=== PATIENT | female | born 1955 | race Caucasian/White ===

== ENCOUNTER 2020-08-23 06:00 | Outpatient (RCR) | payer MEDICARE, OTHER, SELFPAY | END 2020-09-21 23:59 | disposition home or self-care (01) | LOC: GPT 06:00 | PROVIDERS: Referring Provider Physician Assistant; Visit Provider Physician Assistant | DX: M54.5 Low back pain (principal); M54.10 Radiculopathy, site unspecified | CPT/HCPCS: 97032; 97110; 97161; 97530 ==

== ENCOUNTER 2020-09-22 06:00 | Outpatient (RCR) | payer MEDICARE, OTHER, SELFPAY | END 2020-10-22 23:59 | disposition home or self-care (01) | LOC: GPT 06:00 | PROVIDERS: Referring Provider Physician Assistant; Visit Provider Physician Assistant | DX: M16.12 Unilateral primary osteoarthritis, left hip (principal) | CPT/HCPCS: 97110; 97140; 97164; 97530 ==

== ENCOUNTER 2020-10-23 06:00 | Outpatient (RCR) | payer MEDICARE, OTHER, SELFPAY | END 2020-11-21 23:59 | disposition home or self-care (01) | LOC: GPT 06:00 | PROVIDERS: Referring Provider Physician Assistant; Visit Provider Physician Assistant | DX: M16.12 Unilateral primary osteoarthritis, left hip (principal) | CPT/HCPCS: 97032; 97110; 97112; 97530 ==

== ENCOUNTER 2020-11-11 12:57 | Outpatient (CLI) | payer MEDICARE, OTHER, SELFPAY ==
[2020-11-11 13:10] VITALS: BP 128/73; PULSE 70; RESP 18; TEMP 37; O2SAT 98
[2020-11-11 14:45] VITALS: BP 114/72; PULSE 81; RESP 18; O2SAT 92
[2020-11-11 15:45] VITALS: BP 104/62; PULSE 91; RESP 18; TEMP 36.8; O2SAT 92
== END 2020-11-11 12:58 | disposition home or self-care (01) ==
LOC: OPS 13:03
PROVIDERS: PCP Nurse Practitioner; Visit Provider Nurse Practitioner
DX: U07.1 COVID-19 (principal)
CPT/HCPCS: 96365

== ENCOUNTER 2021-08-15 12:45 | Outpatient (CLI) | payer MEDICARE, OTHER, SELFPAY ==
--- NOTE | 2021-08-15 12:56 | MR_ITS ---
WS: [id number] MRI LUMBAR SPINE NONCONTRAST HISTORY: OTHER SPONDYLOSIS, LUMBAR REGION/CHRONIC PAIN SYNDROME, LEFT hip and leg pain. COMPARISON: None available. TECHNIQUE: Sagittal and axial multisequence imaging is submitted. Reversal the normal cervical lordosis. Thoracolumbar curvature and scoliosis. Moderate RIGHT lumbar d extroscoliosis. There is also mild increase in the lumbar lordosis. L1 and L2 retrolisthesis by 3 mm. Mild disc space narrowing and desiccation throughout the lumbar spine. There is marrow edema in the L 2 and L3 vertebral bodies adjacent to the disc space. Conus terminates normally at L1. L1-L2: Moderate annular disc bulging is asymmetric to the LEFT. Mild ligamentum flavum hypertrophy an d facet arthritis. Encroachment into the LEFT lateral thecal sac due to the scoliosis. Mild bilateral foraminal stenosis. L2-L3: Moderate diffuse annular disc bulging. Mild facet joint arthritis. Mild encroachment into the central canal. Mild central and bilateral subarticular recess and foraminal stenosis. L3-L4: Mild diffuse annular disc bulging with moderate ligamentum flavum hypertrophy and facet arthri tis. Mild RIGHT foraminal stenosis. L4-L5: Moderate diffuse annular disc bulging. Moderate ligamentum flavum and facet arthritis. Fluid i n the LEFT facet joint. Mild central stenosis with moderate bilateral subarticular recess stenosis. M ild encroachment upon the traversing L5 nerve roots. Mild bilateral foraminal narrowing. There is nicola y minimal disc contact on the exiting RIGHT L4 nerve root. L5-S1: Mild diffuse disc bulge with a shallow LEFT foraminal disc protrusion. Disc contacts the S1 ne rve roots bilaterally. Very mild central and bilateral subarticular recess and foraminal stenosis. 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 Cyst measures 2.0 x 2.5 cm. RIGHT adnexal cyst measures 3.2 x 3.2 cm. MR/MR lumbar spine wo con* [id number] IMPRESSION: 1. Moderate increase in the lumbar lordosis and dextroscoliosis of the lumbar spine. 2. Marrow edema with disc desiccation at L2-3. 3. Mild central, bilateral subarticular recess and foraminal stenosis at L2-3 and L5-S1. 4. Minimal disc contact on the traversing S1 nerve roots bilaterally. 5. Mild central with moderate bilateral subarticular recess stenosis at L4-5. There is disc contacting the traversing L5 nerve roots and also the exiting RIG HT L4 nerve root. 6. Mild bilateral foraminal stenosis at L1-2 and on the RIGHT at L3-4.
== END 2021-08-15 12:46 | disposition home or self-care (01) ==
LOC: RAD 12:47
PROVIDERS: PCP Nurse Practitioner; Visit Provider Nurse Practitioner
DX: M47.896 Other spondylosis, lumbar region (principal); G89.4 Chronic pain syndrome; M48.061 Spinal stenosis, lumbar region without neurogenic claudication; M48.07 Spinal stenosis, lumbosacral region
CPT/HCPCS: 72148

== ENCOUNTER → 2021-09-03 09:44 | Outpatient (BNVA) | payer MEDICARE, OTHER, SELFPAY | PROVIDERS: PCP Nurse Practitioner; Referring Provider Nurse Practitioner; Visit Provider Internal Medicine | DX: M48.00 Spinal stenosis, site unspecified (principal); R76.8 Other specified abnormal immunological findings in serum; Z11.59 Encounter for screening for other viral diseases; Z11.1 Encounter for screening for respiratory tuberculosis; M45.0 Ankylosing spondylitis of multiple sites in spine; D64.9 Anemia, unspecified | CPT/HCPCS: 36415; 80053; 82728; 85025; 85651; 86140; 86160; 86162; 86200; 86235; 86255; 86376; 86431; 86480; 86704; 86803; 86812; 87340; 99204 ==

== ENCOUNTER 2021-09-22 09:27 | Outpatient (CLI) | payer MEDICARE, OTHER, SELFPAY ==
--- NOTE | 2021-09-22 09:41 | XRR_ITS ---
PROCEDURE INFORMATION: Exam: XR Thoracic Spine Exam date and time: 09/22/2021 9:57 AM Age: 66 years old Clinical indication: Pain in thoracic spine; Patient HX: 66 yo F with pmh of spinal stenosis, positive beba presents for evaluaiton. Pain ongoing for > 5 years, worse in the last two years. Onset age [age] years old. Has abnormal spine lumbar mri. She is on hcq, she has a non specfic diagnosis. Joint swelling in hands and knee occasionally. Am stiffness 30-60 minutes. Denies gelling; Additional info: R76.8 - other specified abnormal immunological findings i. . . TECHNIQUE: Imaging protocol: Radiologic exam of the thoracic spine. Views: 3 views. COMPARISON: MR lumbar spine wo con* [id number] 08/15/2021 1:17 PM FINDINGS: Bones/joints: No acute fracture. Normal alignment. [id number] multilevel DJD of the thoracic spine. No irregular osseous erosions or ankylosis of the vertebral bodies. Soft tissues: Unremarkable. XR/XR thoracic spine 3V* [id number] IMPRESSION: No acute findings. Mild to moderate multilevel DJD of the thoracic spine.
--- NOTE | 2021-09-22 09:41 | XRR_ITS ---
PROCEDURE INFORMATION: Exam: XR Bilateral Sacroiliac Joints Exam date and time: 09/22/2021 9:57 AM Age: 66 years old Clinical indication: Other: Bilat jt pain; Patient HX: 66 yo F with pmh of spinal stenosis, positive beba presents for evaluaiton. Pain ongoing for > 5 years, worse in the last two years. Onset age [age] years old. Has abnormal spine lumbar mri. She is on hcq, she has a non specfic diagnosis. Joint swelling in hands and knee occasionally. Am stiffness 30-60 minutes. Denies gelling; Additional info: L40.9 - psoriasis, unspecified TECHNIQUE: Imaging protocol: XR Bilateral XR of the sacroiliac joints. Views: 3 or more views. COMPARISON: MR lumbar spine wo con* [id number] 08/15/2021 1:17 PM FINDINGS: Bones/joints: Sacroiliac joints are intact. No irregular osseous erosions or sclerosis. Soft tissues: Normal. XR/XR sacroiliac jts 3V [id number] IMPRESSION: No radiographic sequela of sacroiliitis.
--- NOTE | 2021-09-22 09:41 | XRR_ITS ---
PROCEDURE INFORMATION: Exam: XR Right Hand Exam date and time: 09/22/2021 9:57 AM Age: 66 years old Clinical indication: Right; Patient HX: 66 yo F with pmh of spinal stenosis, positive beba presents for evaluaiton. Pain ongoing for > 5 years, worse in the last two years. Onset age [age] years old. Has abnormal spine lumbar mri. She is on hcq, she has a non specfic diagnosis. Joint swelling in hands and knee occasionally. Am stiffness 30-60 minutes. Denies gelling; Additional info: R76.8 - other specified abnormal immunological findings i. . . TECHNIQUE: Imaging protocol: Radiologic exam of the Right hand. Views: 1 or 2 views. COMPARISON: No relevant prior studies available. FINDINGS: Bones/joints: Osseous structures are intact. Negative for fracture. No irregular osseous erosions. Joint spaces are preserved. Soft tissues: Normal. XR/XR hand RT 2V [id number] IMPRESSION: No radiographic sequela of inflammatory arthropathy involving the right hand.
--- NOTE | 2021-09-22 09:41 | XRR_ITS ---
PROCEDURE INFORMATION: Exam: XR Cervical Spine Exam date and time: 09/22/2021 9:57 AM Age: 66 years old Clinical indication: Neck pain; Additional info: R76.8 - other specified abnormal immunological findings i. . . TECHNIQUE: Imaging protocol: Radiologic exam of the cervical spine. Views: 2 or 3 views. COMPARISON: No relevant prior studies available. FINDINGS: Bones/joints: There is multilevel intervertebral disc space narrowing and sclerosis with bone spurs consistent with osteoarthritis. No acute fracture. There is reversal of cervical lordosis. There is spondylolisthesis C7-T1. There is retrolisthesis C4-C5 and C5-C6 in the neutral position. With flexion and extension similar findings seen.. There is no evidence of significant instability with flexion and extension Soft tissues: Unremarkable. XR/XR cervical spine fl/ex [id number] IMPRESSION: 1. Severe osteoarthritis. 2. Spondylolisthesis C7-T1. 3. Retrolisthesis C4-C5 and C5-C6 4. Negative for instability with flexion and extension
--- NOTE | 2021-09-22 09:41 | XRR_ITS ---
PROCEDURE INFORMATION: Exam: XR Left Hand Exam date and time: 09/22/2021 9:57 AM Age: 66 years old Clinical indication: Left; Patient HX: 66 yo F with pmh of spinal stenosis, positive beba presents for evaluaiton. Pain ongoing for > 5 years, worse in the last two years. Onset age [age] years old. Has abnormal spine lumbar mri. She is on hcq, she has a non specfic diagnosis. Joint swelling in hands and knee occasionally. Am stiffness 30-60 minutes. Denies gelling; Additional info: R76.8 - other specified abnormal immunological findings i. . . TECHNIQUE: Imaging protocol: Radiologic exam of the Left hand. Views: 3 or more views. COMPARISON: No relevant prior studies available. FINDINGS: Bones/joints: Osseous structures are intact. Negative for fracture. No irregular osseous erosions. Joint spaces are preserved. Soft tissues: Normal. XR/XR hand LT 2V [id number] IMPRESSION: No radiographic sequela of inflammatory arthropathy involving the left hand.
== END 2021-09-22 09:28 | disposition home or self-care (01) ==
LOC: RAD 09:31
PROVIDERS: PCP Nurse Practitioner; Visit Provider Internal Medicine
DX: R76.8 Other specified abnormal immunological findings in serum (principal); M48.00 Spinal stenosis, site unspecified; L40.9 Psoriasis, unspecified; M47.814 Spondylosis without myelopathy or radiculopathy, thoracic region; M47.812 Spondylosis without myelopathy or radiculopathy, cervical region; M43.13 Spondylolisthesis, cervicothoracic region
CPT/HCPCS: 72040; 72072; 72202; 73120

== ENCOUNTER → 2021-10-03 09:01 | Outpatient (BNVA) | payer MEDICARE, OTHER, SELFPAY | PROVIDERS: PCP Nurse Practitioner; Visit Provider Internal Medicine | DX: M48.00 Spinal stenosis, site unspecified (principal); R76.8 Other specified abnormal immunological findings in serum; D75.1 Secondary polycythemia | CPT/HCPCS: 99214 ==

== ENCOUNTER → 2022-01-27 11:25 | Outpatient (BNVA) | payer MEDICARE, OTHER, SELFPAY | PROVIDERS: PCP Nurse Practitioner; Visit Provider Internal Medicine | DX: M48.00 Spinal stenosis, site unspecified (principal); R76.8 Other specified abnormal immunological findings in serum; Z79.52 Long term (current) use of systemic steroids; D75.89 Other specified diseases of blood and blood-forming organs | CPT/HCPCS: 99213 ==

== ENCOUNTER 2022-02-09 08:32 | Outpatient (CLI) | payer MEDICARE, OTHER, SELFPAY ==
--- NOTE | 2022-02-09 08:42 | USCV_ITS ---
Sabrina Solano Age: 66 Gender: F : 1955 Exam Date: 02/09/2022 08:50 Ordering Phys: Patricio Kang Technologist: CT Exam Location: [facility] [place] Indication: aaa screening HISTORY: Diameter (cm) AP x Transverse x Length Velocity (cm/s) Waveform Prox Aorta: 2.16 x 2.22 x 70.70 Biphasic Mid Aorta: 2.26 x 2.45 x 101.65 Triphasic Distal Aorta: 1.67 x 1.69 x 102.50 Biphasic Right Iliac Prox: 0.95 x 0.90 x 104.20 Biphasic Left Iliac Prox: 0.83 x 0.87 x 110.70 Triphasic Stent Prox Landing x x Aneurysmal Sac Max x x Lt Lat Sac Dim Rt Lat Sac Dim Stent Dist Landing x x Right Iliac Stent x x Left Iliac Stent x x Right Renal Art Left Renal Art FINDINGS: Comparison: none available. Ectatic abdominal aorta with evidence of atherosclerotic plaque noted. There is evidence of atherosclerotic plaque no significan stenosis in the right common iliac artery. There is evidence of atherosclerotic plaque no significan stenosis in the left common iliac artery. CONCLUSIONS Ectatic abdominal aorta with evidence of atherosclerotic plaque noted. No evidence of abdominal aortic aneurysm. Dr. Eloise Rivas DO (Electronically Signed) Final Date: 09 February 2022 09:34 S
== END 2022-02-09 08:33 | disposition home or self-care (01) ==
PROVIDERS: PCP Nurse Practitioner; Visit Provider Nurse Practitioner
DX: I70.0 Atherosclerosis of aorta (principal); R93.89 Abnormal findings on diagnostic imaging of other specified body structures
CPT/HCPCS: 93978

== ENCOUNTER → 2022-05-19 11:21 | Outpatient (BNVA) | payer MEDICARE, OTHER, SELFPAY | PROVIDERS: PCP Nurse Practitioner; Visit Provider Internal Medicine | DX: R76.8 Other specified abnormal immunological findings in serum (principal); Z79.52 Long term (current) use of systemic steroids | CPT/HCPCS: 99213 ==

== ENCOUNTER 2022-06-30 08:58 | Outpatient (CLI) | payer MEDICARE, OTHER, SELFPAY ==
--- NOTE | 2022-06-30 09:28 | XRR_ITS ---
PROCEDURE INFORMATION: Exam: XR Bilateral Hips Exam date and time: 06/30/2022 9:30 AM Age: 67 years old Clinical indication: Condition or disease; Other: Arthritis; Additional info: R76.8 - other specified abnormal immunological findings i TECHNIQUE: Imaging protocol: Radiologic exam of the bilateral hips. Views: 2 views of hips with pelvis when performed. COMPARISON: CR XR sacroiliac jts m 3V [id number] 09/22/2021 9:57 AM FINDINGS: Bones/joints: Unremarkable. No acute fracture. Soft tissues: Unremarkable. XR/XR hip BI 3-4V wo/w pel [id number] IMPRESSION: No acute findings.
== END 2022-06-30 08:59 | disposition home or self-care (01) ==
PROVIDERS: PCP Nurse Practitioner; Visit Provider Internal Medicine
DX: M16.0 Bilateral primary osteoarthritis of hip (principal); R76.8 Other specified abnormal immunological findings in serum
CPT/HCPCS: 73522

== ENCOUNTER → 2022-07-16 08:42 | Outpatient (BNVA) | payer MEDICARE, OTHER, SELFPAY | PROVIDERS: PCP Nurse Practitioner; Visit Provider Internal Medicine | DX: R76.8 Other specified abnormal immunological findings in serum (principal); Z79.899 Other long term (current) drug therapy; M48.00 Spinal stenosis, site unspecified | CPT/HCPCS: 99214 ==

== ENCOUNTER → 2022-09-29 08:47 | Outpatient (BNVA) | payer MEDICARE, OTHER, SELFPAY | PROVIDERS: PCP Nurse Practitioner; Visit Provider Internal Medicine | DX: R76.8 Other specified abnormal immunological findings in serum (principal); M48.00 Spinal stenosis, site unspecified; M16.12 Unilateral primary osteoarthritis, left hip; Z79.899 Other long term (current) drug therapy; Z79.52 Long term (current) use of systemic steroids | CPT/HCPCS: 99214 ==

== ENCOUNTER → 2023-01-28 09:26 | Outpatient (BNVA) | payer MEDICARE, OTHER, SELFPAY | PROVIDERS: PCP Nurse Practitioner; Visit Provider Internal Medicine | DX: R76.8 Other specified abnormal immunological findings in serum (principal); M48.00 Spinal stenosis, site unspecified | CPT/HCPCS: 99214 ==